=== PATIENT | male | born 1970 | race Two or more races ===

== ENCOUNTER 2018-10-24 10:28 | Outpatient (CLI) | payer OTHER | END 2018-10-24 10:45 | disposition home or self-care (01) | LOC: RAD 501 10:28 | DX: M25.561 Pain in right knee (principal); M25.562 Pain in left knee ==

== ENCOUNTER 2019-05-06 10:52 | Outpatient (CLI) | payer OTHER | END 2019-05-06 11:37 | disposition home or self-care (01) | LOC: RAD 10:52 | DX: M25.562 Pain in left knee (principal); M25.522 Pain in left elbow; M25.561 Pain in right knee | CPT/HCPCS: 73718 ==

== ENCOUNTER 2019-09-17 10:40 | Outpatient (CLI) | payer OTHER | END 2019-09-17 10:45 | disposition home or self-care (01) | LOC: RAD 10:40 | DX: R07.89 Other chest pain (principal) ==

== ENCOUNTER → 2020-06-21 | Emergency (ER) | payer OTHER | END | disposition left against medical advice (07) | LOC: ER 15:37 | DX: Z53.20 Procedure and treatment not carried out because of patient's decision for unspecified reasons (principal) ==